=== PATIENT | male | born 1945 ===

== ENCOUNTER 2022-12-15 16:32 | Inpatient (IN) ==
--- NOTE | 2022-12-15 17:44 | Cat Scan Report ---
History: Fell with multiple injuries TECHNIQUE: The brain was imaged without contrast in axial plane at 2.5 mm intervals. Sagittal and coronal reformats were created. The radiation exposure was limited using dose reduction technology. FINDINGS: There is an old infarct with encephalomalacia posteriorly and medially in the right occipital lobe. It measures 2 x 2.4 x 4 centimeter. No acute infarct is detected. There is no hemorrhage or cerebral edema. Mild atrophy is present, most apparent in the frontal lobes and around the sylvian fissures. The ventricles are normal in size. No abnormal extra-axial fluid collection is present. Bone windows show no skull fracture. Patient has small amount of fluid and mucosal thickening in the inferior recesses of both frontal sinuses and there is also moderate mucosal thickening along the reese of several ethmoid air cells. Visualized portions of the orbits are normal. IMPRESSION: No evidence of acute head injury Old right occipital lobe infarct Sinusitis Kirsten Monroe was called with the report Interpreted and Authenticated by: Huber Irvin 12/15/22
--- NOTE | 2022-12-15 17:49 | Cat Scan Report ---
History: Fell with multiple injuries TECHNIQUE: The neck was imaged without contrast in axial plane at 2.5 mm intervals. Sagittal and coronal reformats were created. The radiation exposure was limited using dose reduction technology. FINDINGS: No fracture or dislocation are present. The skull base is normal. Cervico-occipital junction is normal. There is minor arthritis at the articulation of the odontoid and anterior ring of C1. There is partial ankylosis of the intervertebral disc at C2-3. This disc space is normal in height and there is no stenosis. The C3-4 disc is normal. There are small anterior spurs. Severe arthritis is present in the right facet and there is spurring of the right side uncinate process causing severe stenosis of the right-sided foramen. There is mild arthritis in the left facet with mild stenosis of the left-sided foramen. There are large anterior bridging spurs at C4-5, C5-6 and C6-7. These disc spaces are normal in height. There is moderate arthritis in the right side facet at C4-5 resulting in moderate stenosis of the right-sided neural foramen. Mild arthritis is present in the facets bilaterally at C5-6. There is no significant stenosis. C6-7 disc space is normal in height and there are small spurs arising from the uncinate processes. These are not causing significant stenosis. C7-T1 disc space level is normal. Central canal is normal in size and contour. No paraspinal hematoma or mass are present. 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
[2022-12-15 19:09] LABS: POC Calcium, Ionized 1.15 (1.16-1.32); POC Creatinine 1.1 (0.6-1.2)
--- NOTE | 2022-12-15 19:21 | Cat Scan Report ---
History: Fell with multiple injuries TECHNIQUE: The pelvis was imaged without contrast in axial plane at 2.5 mm intervals. Sagittal and coronal reformats were created. The radiation exposure was limited using dose reduction technology. FINDINGS: There is an acute comminuted fracture involving the left ischium. Fracture involves both anterior and posterior columns as well as the mid body. Fracture extends into the left superior ischial ramus. There is a nondisplaced fractures through the left inferior pubic ramus. The fracture in the roof of the joint extends superiorly towards the inferior margin of the left SI joint. The SI joints are normal in width and alignment. The right side of the pelvis is intact. The femoral heads and necks are normal. There is no underlying arthritis in the hips. There is a moderate size hematoma in the left side of the pelvis and leg involving the obturator internus muscle. Incidentally noted is a transitional vertebra with partial lumbarization of S1. There is arthritis and disc degeneration with posterior bulge at L5-S1. Numerous diverticula are present in the descending and sigmoid colon. There is no acute diverticulitis. IMPRESSION: Nondisplaced comminuted fracture of the left acetabulum extending into the medial aspect of the left ilium, left superior ischial ramus and left inferior pubic ramus Hematoma in the left obturator internus muscle. Kirsten Monroe was called with the report Interpreted and Authenticated by: Huber Irvin 12/15/22
[2022-12-15] MEDS ORDERED: HYDROCODONE/APAP 7.5/325MG TABLET PO ONE (19:27)
[2022-12-15] MEDS ORDERED: morphine 2 MG/ML VIAL IV PRN (19:27)
--- NOTE | 2022-12-15 19:27 | Emergency Department Note ---
Extremity Problem HPI General Chief complaint: Trauma Stated complaint: fell Time Seen by Provider: 12/15/22 16:38 Source: patient Mode of arrival: wheelchair Limitations: no limitations History of Present Illness HPI Narrative: 77-year-old healthy male presents to the ER after he sustained a ground-level fall from about 2 feet off the back of his trailer. He landed on his left hip and then hit his head. He had no loss of consciousness. He is not on blood thinners. He tried to ambulate afterwards and had fairly severe left hip pain so came to the ER for evaluation. He is complaining of some lower cervical spine pain, but he thinks this is probably from an old injury. He denies headache. He initially had some nausea, but this is resolved. He denies vomiting. Related Data Home Medications Medication Instructions Recorded Confirmed citalopram 20 mg tablet 20 mg PO HS 10/25/22 12/15/22 ezetimibe 10 mg tablet 10 mg PO HS 10/25/22 12/15/22 montelukast 10 mg tablet 10 mg PO QDAY 10/25/22 12/15/22 omeprazole 20 mg capsule,delayed 20 mg PO QDAY 10/25/22 12/15/22 release Allergies Allergy/AdvReac Type Severity Reaction Status Date / Time iodine [IODINE] Allergy Severe HIVES, Verified 12/15/22 21:02 THROAT SWELLS SHUT From SHELLFISH* Allergy Severe HIVES, Uncoded 03/03/15 12:05 THROAT SWELLS SHUT Review of Systems ROS ROS Narrative: Narrative: All systems ED: reviewed and negative except as stated. [facility] Narrative Patient History Narrative: Narrative: Medical/Surgical/Family History All Active Problems (Updated 12/15/22 @ 22:22 by Kirsten Monroe PA-C) Hyperlipidemia, mixed (Chronic) Depression (Chronic) GERD (gastroesophageal reflux disease) (Chronic) Allergic rhinitis (Chronic) RAD (reactive airway disease) (Chronic) Overweight (Chronic) Wellness examination (Chronic) Elevated PSA (Chronic) Closed pelvic fracture (Acute) Medical History Allergic rhinitis Depression Elevated PSA GERD (gastroesophageal reflux disease) Hyperlipidemia, mixed Overweight RAD (reactive airway disease) Wellness examination Surgical History History of cataract surgery (~2021) History of inguinal hernia repair History of myringoplasty (~1982) History of shoulder surgery History of sinus surgery Family History Father Colon cancer, Onset Age: 84 Brother Prostate cancer Cancer Family/Other Hyperthyroidism Depression Colon cancer Prostate cancer Social History Smoking Status: Former smoker and Smokeless tobacco Alcohol Intake Frequency: does not drink Substance Use: does not use Exam Narrative Narrative: General: AOx3, NAD, nontoxic appearing. Pleasant and conversant. HEENT: PERRL, EOMI, normocephalic. Moist mucous membranes. Normal facies and normal dentition. Chest: Symmetric, no pain to palpation Respiratory: Lungs clear to auscultation bilaterally. No respiratory distress. Unlabored breathing. Heart: Regular rate and rhythm, no murmurs/clicks/rubs. Abdomen: Non-tender, Non distended, normal bowel tones. No organomegaly. Extremities: Warm and well perfused. No edema. DP 2+ bilaterally. No venous stasis. Left hip without deformity. There is no ecchymosis or swelling to the greater trochanter. Patient has painful hip flexion. Neuro: No focal deficits. Cranial nerves II-XII grossly normal. Skin: Warm dry, no rashes or lesions, no cyanosis. Psych: Normal mood and affect Heme/Lymph: No abnormal bruising General Limitations: no limitations Course Course Course Narrative: 77-year-old male presents after a ground-level fall now with left hip pain and minor head trauma. Reevaluation(s) Reevaluation #1: Obtain head CT and cervical neck CT without contrast. Obtain pelvic CT Reevaluation #2: Pelvis CT shows a nondisplaced comminuted fracture of the left acetabulum extending into the medial aspect of the left ilium, left superior ischial ramus and left inferior pubic ramus Call placed to Skye Silva trauma surgeon and he recommends conservative management with nonweightbearing for 6 weeks. Gradual partial weightbearing thereafter. Recommends repeat imaging in about 2 weeks. Patient will need admission for PT OT evaluation, pain management, and placement Vital Signs Vital signs: Vital Signs Temperature 98.2 F 12/15/22 16:40 Pulse Rate 82 12/15/22 16:40 Respiratory Rate 19 12/15/22 16:40 Blood Pressure 130/82 12/15/22 16:40 Pulse Oximetry (%) 95 12/15/22 16:40 Oxygen Delivery Method Room Air 12/15/22 16:40 Temperature 98.1 F 12/16/22 04:00 Pulse Rate 68 12/16/22 04:00 Respiratory Rate 16 12/16/22 04:00 Blood Pressure 118/71 12/16/22 04:00 Pulse Oximetry (%) 94 12/16/22 04:00 Oxygen Delivery Method Room Air 12/16/22 04:00 MDM MDM Narrative Medical decision making narrative: Left nondisplaced acetabular fracture Patient will need admission for pain management and PT/OT evaluation and disposition planning. Patient has been accepted by the hospitalist for admission. Lab Data 12/15/22 20:51 Labs: Lab Results 12/15/22 Range/Units 19:04 POC Hct 46.0 (41-55) POC Sodium 138 (133-145) POC Potassium 4.0 (3.3-5.1) POC Chloride 103 (96-108) POC Total CO2 27.0 (22-30) POC BUN 12 (6-20) POC Creatinine 1.1 (0.6-1.2) POC Glucose 99 (70-105) POC WB Ioniz Calcium 1.15 L (1.16-1.32) Discharge Plan Patient/Caregiver Discharge Instructions Pt seen by SPORTS MARKETING SPECIALIST/PA only: Yes Clinical Impression: Closed pelvic fracture Patient Disposition: Xfer As Inpt ([facility]) Discharge Date/Time: 12/15/22 20:51
--- NOTE | 2022-12-15 20:14 | Internal Med History&Physical ---
HPI History of Present Illness Patient information: Note initiated : 12/15/22 at 8:08 pm Service Date, if different from initiated Date: [] Patient: Mitch Thorpe a 77 y/o M admitted on for fell. Chief Complaint: [] History of present illness: Mr. Thorpe is a 77 year old M Patient was working on his trailer when he stepped off falling onto his left side and hitting his head. No loss of consciousness. Patient unable to ambulate afterwards. Seen in the ED.Patient found to have left pelvic fracture nondisplaced comminuted left acetabulum extending to the medial aspect of the left ilium left superior ischial ramus and left inferior pubic ramus with a subsequent hematoma in the left obturator clinical dermatologist muscle. Case discussed with trauma surgeon in [place] who felt this was conservative treatment only and recommended nonweightbearing for 6 weeks and subsequent partial ground gradual thereafter. Patient denies chest pain or shortness of breath or headaches. CT head and CT cervical spine no acute process Review of Systems: Pertinent positives as above.denies headache/fever/chills/nausea/vomiting/chest or abdominal pain/cough/dyspnea/diarrhea. Remaining 10 point review of system reviewed negative PHYSICAL EXAM General: Alert, Awake, No acute Distress Eyes/N/T: EOMI, no scleral icterus, PERRL, Head/Neck: neck supple, full ROM, normocephalic atraumatic CV: RRR, No murmurs, normal s1/s2 Pulm: Clear b/l, no wheezing/rhonchi/rales, no respiratory distress Abd: soft, nontender, +BS x4 Ext: no clubbing/cyanosis/edema, nontender Neuro: Alert, no focal deficits, moves all extremities, CN 2-12 grossly intact, sensations intact b/l upper/lower Psychiatric: Skin: warm/dry, normal color PFSH PFSH All Active Problems Hyperlipidemia, mixed (Chronic) Depression (Chronic) GERD (gastroesophageal reflux disease) (Chronic) Allergic rhinitis (Chronic) RAD (reactive airway disease) (Chronic) Overweight (Chronic) Wellness examination (Chronic) Elevated PSA (Chronic) Medical History Allergic rhinitis Depression Elevated PSA GERD (gastroesophageal reflux disease) Hyperlipidemia, mixed Overweight RAD (reactive airway disease) Wellness examination Surgical History History of cataract surgery (~2021) History of inguinal hernia repair History of myringoplasty (~1982) History of shoulder surgery History of sinus surgery Family History Father Colon cancer, Onset Age: 84 Brother Prostate cancer Cancer Family/Other Hyperthyroidism Depression Colon cancer Prostate cancer Social History marital status: occupational status: retired physical activity: walking frequency: 1-2 times per week smoking status: Former smoker quit date: 09/30/13 and Smokeless tobacco alcohol intake frequency: does not drink substance use type: does not use MEDS/ALLERGIES Home Medications and Allergies Home Medications Medication Instructions Recorded Confirmed Type citalopram 20 mg tablet 20 mg PO HS 10/25/22 12/15/22 History ezetimibe 10 mg tablet 10 mg PO HS 10/25/22 12/15/22 History montelukast 10 mg tablet 10 mg PO QDAY 10/25/22 12/15/22 History omeprazole 20 mg capsule,delayed 20 mg PO QDAY 10/25/22 12/15/22 History release Allergies Allergy/AdvReac Type Severity Reaction Status Date / Time iodine [IODINE] Allergy Severe HIVES, Verified 12/15/22 20:06 THROAT SWELLS SHUT From SHELLFISH* Allergy Severe HIVES, Uncoded 03/03/15 12:05 THROAT SWELLS SHUT EXAM Constitutional Vitals: Temp Pulse Resp BP Pulse Ox O2 Del Method 98.2 F 77 19 125/73 95 Room Air 12/15/22 16:40 12/15/22 20:04 12/15/22 16:40 12/15/22 20:04 12/15/22 20:04 12/15/22 16:40 DATA Data Completed and Pending Labs: Labs from last 24 hours 12/15/22 19:04 POC Hct 46.0 POC Sodium 138 POC Potassium 4.0 POC Chloride 103 POC Total CO2 27.0 POC BUN 12 POC Creatinine 1.1 POC Glucose 99 POC WB Ioniz Calcium 1.15 L A/P Narrative A/P Narrative: A: *Left side pelvic fracture, nondisplaced. With hematoma: Per trauma surgery > conservative treatment -Nonweightbearing for 6 weeks then partial and gradual thereafter * *HLD: *Depression: *GERD: * P: -pain control, muscle relaxers -per orthopedics > conservative treatment, NWB x6wks then partial and gradual thereafter -per ortho > repeat imaging in 2wks. -Check CBC given hematoma - -cont home medications -PT/OT -follow-up with orthopedic surgery -CM for placement -ppx: SCD(given trauma/hematoma) / home ppi Time Spent With Patient Time: Total time spent is greater than 50% in coordination of care (as documented) at patient's floor/unit and/or counseling patient: Initial: Total time with patient: 55 - 74 minutes
[2022-12-15 20:57] LABS: Basophils # (Auto) 0.04 K/mcL (0.00-0.30); Basophils % (Auto) 0.3 % (0.0-2.0); Eosinophils % (Auto) 0.7 % (0.0-7.0); Hematocrit 45.7 % (40.1-51.0); Lymphocytes # (Auto) 1.36 K/mcL (1.50-4.80); Lymphocytes % (Auto) 9.8 % (15.5-49.0); Mean Cell Volume 91.8 fL (80.0-100.0); Mean Corpuscular HGB Conc 32.8 g/dL (31.0-36.0); Mean Platelet Volume 10.4 fL (8.8-12.5); Monocytes # (Auto) 0.99 K/mcL (0.10-0.90); Monocytes % (Auto) 7.2 % (1.0-12.0); Neutrophils % (Auto) 81.5 % (38.0-78.0); Platelet Count 194 K/mcL (140-440); RBC 4.98 M/mcL (4.63-6.08); Red Cell Distribution Width 13.1 % (11.5-14.5); WBC 13.8 K/mcL (4.5-11.0)
[2022-12-15] MEDS ORDERED: SENNOSIDES 1 TABLET PO PRN (21:00)
[2022-12-15] MEDS ORDERED: POTASSIUM CHLORIDE 40 MEQ in DEXTROSE 5% IN WATER 500 ML IV PRN (21:00)
[2022-12-15] MEDS ORDERED: ONDANSETRON 4 MG/2 ML VIAL IV PRN (21:00)
[2022-12-15] MEDS ORDERED: MAGNESIUM SULFATE 2 GM/50 ML BAG IV PRN (21:00)
[2022-12-15] MEDS ORDERED: 0.9 % SODIUM CHLORIDE 1,000 ML IV SCH (21:00)
[2022-12-15] MEDS ORDERED: ACETAMINOPHEN 325 MG TABLET PO PRN (21:00)
[2022-12-15] MEDS ORDERED: IPRATROPIUM/ALBUTEROL 3 ML AMPUL.NEB NEB PRN (21:00)
[2022-12-15] MEDS ORDERED: POTASSIUM CHLORIDE 20 MEQ TABLET PO PRN ×2 (21:00)
[2022-12-15] MEDS ORDERED: morphine 4 MG/ML VIAL IV PRN (21:00)
[2022-12-15] MEDS ORDERED: POLYETHYLENE GLYCOL 3350 17 GM PACKET PO PRN (21:00)
[2022-12-15] MEDS: DOCUSATE SODIUM 100 MG CAPSULE PO SCH ×2 (21:25→21:36)
[2022-12-15] MEDS: 0.9 % SODIUM CHLORIDE 10 ML SYRINGE IV SCH (21:36)
[2022-12-15] MEDS: EZETIMIBE 10 MG TABLET PO SCH (21:36)
[2022-12-15] MEDS: HYDROcodone/APAP 5/325MG TABLET PO PRN (21:36)
[2022-12-15] MEDS: CITALOPRAM 20 MG TABLET PO SCH (21:36)
[2022-12-16] MEDS: 0.9 % SODIUM CHLORIDE 10 ML SYRINGE IV SCH ×3 (04:32→20:35)
[2022-12-16 06:46] LABS: Basophils # (Auto) 0.03 K/mcL (0.00-0.30); Basophils % (Auto) 0.3 % (0.0-2.0); Eosinophils # (Auto) 0.26 K/mcL (0.00-0.70); Hematocrit 40.8 % (40.1-51.0); Hemoglobin 13.4 g/dL (13.7-17.5); Lymphocytes # (Auto) 1.41 K/mcL (1.50-4.80); Lymphocytes % (Auto) 16.2 % (15.5-49.0); Mean Cell Volume 92.9 fL (80.0-100.0); Mean Corpuscular HGB Conc 32.8 g/dL (31.0-36.0); Mean Platelet Volume 10.2 fL (8.8-12.5); Monocytes # (Auto) 0.96 K/mcL (0.10-0.90); Neutrophils % (Auto) 69.2 % (38.0-78.0); Platelet Count 172 K/mcL (140-440); RBC 4.39 M/mcL (4.63-6.08); Red Cell Distribution Width 13.1 % (11.5-14.5); WBC 8.7 K/mcL (4.5-11.0)
[2022-12-16 07:31] LABS: ALT/SGPT 14 U/L (<40); AST/SGOT 21 U/L (<40); Albumin 3.7 gm/dL (3.2-5.2); Albumin/Globulin Ratio 1.7 (1.0-2.3); Alkaline Phosphatase 75 U/L (39-117); Bilirubin,Direct 0.3 mg/dL (<0.3); Bilirubin,Total 1.5 mg/dL (0.1-1.0); Blood Urea Nitrogen 11 mg/dL (8-23); Calcium 8.5 mg/dL (8.6-10.4); Carbon Dioxide 26 mmol/L (22-30); Chloride 104 mmol/L (96-108); Globulin 2.2 gm/dL (2.2-3.7); Glomerular Filtration Rate 82; Glucose 104 mg/dL (70-105); Lactate Dehydrogenase 232 U/L (135-225); Phosphorous 2.6 mg/dL (2.5-4.5); Triglycerides 74 mg/dL (<150); Uric Acid 5.5 mg/dL (2.5-8.0)
[2022-12-16] MEDS: OMEPRAZOLE 20 MG CAPSULE PO SCH (08:44)
[2022-12-16] MEDS: DOCUSATE SODIUM 100 MG CAPSULE PO SCH ×2 (08:44→20:35)
[2022-12-16] MEDS: MONTELUKAST 10 MG TABLET PO SCH (08:44)
[2022-12-16] MEDS: METHOCARBAMOL 750 MG TABLET PO PRN (08:44)
--- NOTE | 2022-12-16 08:48 | Internal Med Progress Note ---
SUBJECTIVE Subjective Patient information: Note initiated : 12/16/22 at 8:46 am Service Date, if different from initiated Date: [] Patient: Mitch Thorpe a 77 y/o M admitted on 12/15/22 for fell. Chief Complaint: [] Interval history: History of present illness: Mr. Thorpe is a 77 year old M Patient was working on his trailer when he stepped off falling onto his left side and hitting his head. No loss of consciousness. Patient unable to ambu late afterwards. Seen in the ED.Patient found to have left pelvic fracture nondisplaced comminute d left acetabulum extending to the medial aspect of the left ilium left superior ischial ramus and left inferior pubic ramus with a subsequent hematoma in the left obturator fondant puff maker muscle. Case discussed with trauma surgeon in [place] who felt this was conservative treatment only and recommended nonweightbearing for 6 weeks and subsequent partial ground gradual thereafter. Patient denies chest pain or shortness of breath or headaches. CT head and CT cervical spine no acute process 12/16 Patient did not sleep very well. States pain is controlled as long as he does not move. Reactive leukocytosis resolved. Vital signs stable. Physical therapy today. Case management for placement. Review of Systems: Pertinent positives as above.denies headache/fever/chills/nausea/vomiting/chest or abdominal pain/cough/dyspnea/diarrhea. PHYSICAL EXAM General: Alert, Awake, No acute Distress Eyes/N/T: EOMI, no scleral icterus, Head/Neck: neck supple, full ROM, CV: RRR, No murmurs, normal s1/s2 Pulm: Clear b/l, no wheezing/rhonchi/rales, no respiratory distress Abd: soft, nontender, +BS x4 Ext: no clubbing/cyanosis/edema, nontender Neuro: Alert, no focal deficits, moves all extremities, sensations intact b/l upper/lower Psychiatric: Skin: warm/dry, normal color Constitutional Vitals: Vital Signs Temp Pulse Resp BP Pulse Ox O2 Del Method 98.1 F 68 16 118/71 94 Room Air 12/16/22 04:00 12/16/22 04:00 12/16/22 04:00 12/16/22 04:00 12/16/22 04:00 12/16/22 04:00 Period Temp Pulse Resp BP Sys/[place] Pulse Ox O2 Del Method O2 Flow Rate Last 24 Hr 97.3 F-98.2 F 65-82 16-20 118-147/71-89 92-99 Room Air-Room Air Intake and Output 12/15/22 12/16/22 12/16/22 19:59 03:59 11:59 Intake Total 1240 Output Total 425 200 Balance -425 1040 Weight 86.183 kg 88.904 kg Intake & Output: Intake & Output 12/15/22 12/16/22 12/16/22 19:59 03:59 11:59 Intake Total 1240 Output Total 425 200 Balance -425 1040 Weight 86.183 kg 88.904 kg Intake: IV 1000 Sodium Chloride 0.9% 1,000 ml @ 1000 100 mls/hr IV .Q10H [facility] Rx#: [id number] Oral 240 Output: Void Amount 425 200 Other: Meal JELLO X2 Percent of Meal Consumed 100% Feeding Ability Independent Urine Appearance Clear Clear Urine Color Yellow Yellow Urine Odor Normal Normal OBJ DATA Labs 12/16/22 05:10 12/16/22 05:10 Labs: Abnormal Lab Results 12/16/22 12/16/22 12/15/22 05:10 05:10 20:51 WBC 13.8 H RBC 4.39 L Hgb 13.4 L Neut % (Auto) 81.5 H Lymph % (Auto) 9.8 L Lymph # (Auto) 1.41 L 1.36 L [place] # (Auto) 0.96 H 0.99 H Immature Gran # 0.07 H Absolute Neutrophils 11.28 H Calcium 8.5 L POC WB Ioniz Calcium Total Bilirubin 1.5 H Direct Bilirubin 0.3 H Lactate Dehydrogenase 232 H 12/15/22 19:04 WBC RBC Hgb Neut % (Auto) Lymph % (Auto) Lymph # (Auto) [place] # (Auto) Immature Gran # Absolute Neutrophils Calcium POC WB Ioniz Calcium 1.15 L Total Bilirubin Direct Bilirubin Lactate Dehydrogenase Meds: Medications Acetaminophen (Acetaminophen 325 Mg Tablet) 650 mg PO Q6HP PRN; Protocol PRN Reason: Per Pain Protocol/Fever > 101 Hydrocodone Bitart/Acetaminophen (Hydrocodone/Apap 5/325mg Tablet) 1 tab PO Q4HP PRN PRN Reason: PAIN LEVEL 3-6 Last Admin: 03/18/23 21:36 Dose: 1 tab Albuterol/Ipratropium (Ipratropium/Albuterol 3 Ml Ampul.Neb) 3 ml NEB Q4HP PRN PRN Reason: Shortness Of Breath Citalopram Hydrobromide (Citalopram 20 Mg Tablet) 20 mg PO [facility] Last Admin: 12/15/22 21:36 Dose: 20 mg Docusate Sodium (Docusate Sodium 100 Mg Capsule) 100 mg PO BID [facility] Last Admin: 12/16/22 08:44 Dose: 100 mg Ezetimibe (Ezetimibe 10 Mg Tablet) 10 mg PO [facility] Last Admin: 12/15/22 21:36 Dose: 10 mg Potassium Chloride 40 meq/ (Dextrose) 520 mls @ 130 mls/hr IV UD PRN PRN Reason: Potassium < 3 Magnesium Sulfate (Magnesium Sulfate) 2 gm in 50 mls @ 50 mls/hr IV UD PRN PRN Reason: Magnesium </= 1.6 Methocarbamol (Methocarbamol 750 Mg Tablet) 750 mg PO TIDP PRN PRN Reason: Muscle Spasm Last Admin: 12/16/22 08:44 Dose: 750 mg Montelukast Sodium (Montelukast 10 Mg Tablet) 10 mg PO QDAY [facility] Last Admin: 12/16/22 08:44 Dose: 10 mg Morphine Sulfate (Morphine 4 Mg/Ml Vial) 0 mg IV Q3HP PRN PRN Reason: Pain Omeprazole (Omeprazole 20 Mg Capsule) 20 mg PO QDAY [facility] Last Admin: 12/16/22 08:44 Dose: 20 mg Ondansetron HCl (Ondansetron 4 Mg/2 Ml Vial) 4 mg IV Q4HP PRN PRN Reason: Nausea And Vomiting Polyethylene Glycol (Polyethylene Glycol 3350 17 Gm Packet) 17 gm PO DAILYP PRN PRN Reason: Constipation Potassium Chloride (Potassium Chloride 20 Meq Tablet) 40 meq PO UD PRN PRN Reason: Potssium is 3-3.5 Potassium Chloride (Potassium Chloride 20 Meq Tablet) 40 meq PO UD PRN PRN Reason: Potassium < 3 Senna (Sennosides 1 Tablet) 2 tab PO DAILYP PRN PRN Reason: Constipation Sodium Chloride (0.9 % Sodium Chloride 10 Ml Syringe) 10 ml IV Q8 [facility] Last Admin: 12/16/22 04:32 Dose: Not Given A/P Narrative A/P Narrative: A: *Left side pelvic fracture, nondisplaced. With hematoma: Per trauma surgery > conservative treatment -Nonweightbearing for 6 weeks then partial and gradual thereafter *HLD: *Depression: *GERD: P: -pain control, muscle relaxers -per orthopedics > conservative treatment, NWB x6wks then partial and gradual thereafter -per ortho > repeat imaging in 2wks. -cont home medications -PT/OT -follow-up with orthopedic surgery -CM for placement -ppx: SCD(given trauma/hematoma) / home ppi Time Spent With Patient Time: Total time spent is greater than 50% in coordination of care (as documented) at patient's floor/unit and/or counseling patient: Subsequent: Total time with patient: 35 - 49 minutes QUALITY VTE Deep Vein Thrombosis/Pulmonary Embolism Present on Admission: No
[2022-12-16] MEDS: HYDROcodone/APAP 5/325MG TABLET PO PRN ×2 (08:59→20:35)
--- NOTE | 2022-12-16 10:59 | Discharge Summary ---
Discharge Provider Provider IMPORTANT FOLLOW-UP INFORMATION FOR PCP: Patient information: Note initiated : 12/16/22 at 10:58 am Service Date, if different from initiated Date: [] Patient: Mitch Thorpe 77 y/o M admitted on 12/15/22 for fell. Chief Complaint: [] Date of admission: 12/15/22 20:51 Discharge date: 12/18/22 Primary care physician: Maria Teresa Renner Consults: 12/15/22 Consult to Physician [CONS] Stat Comment: Consulting Provider: Josh Morris Reason For Exam: Physician to Consult COURSE Hospital Course Hospital course: History of present illness: Mr. Thorpe is a 77 year old M Patient was working on his trailer when he stepped off falling onto his left side and hitting his head. No loss of consciousness. Patient unable to ambulate afterwards. 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 Case discussed with trauma surgeon in [place] who felt this was conservative treatment only and recommended nonweightbearing for 6 weeks and subsequent partial ground gradual thereafter. Patient denies chest pain or shortness of breath or headaches. CT head and CT cervical spine no acute process 12/16 Patient did not sleep very well. States pain is controlled as long as he does not move. Reactive leukocytosis resolved. Vital signs stable. Physical therapy today. Case management for placement. 12/17 Pain relatively controlled while still but when he moves or sits up pain is still severe. Vital signs stable. 12/18 Patient feeling better. Able ambulate to the bathroom without such severe pain. Awaiting PT OT. Eventual placement. A: *Left side pelvic fracture, nondisplaced. With hematoma: Per trauma surgery > conservative treatment -Nonweightbearing for 6 weeks then partial and gradual thereafter *HLD: *Depression: *GERD: P: -pain control, muscle relaxers -per orthopedics > conservative treatment, NWB x6wks then partial and gradual thereafter -per ortho > repeat imaging in 2wks. Discharge diagnosis: left side pelvic fracture Secondary discharge diagnosis: Hyperlipidemia depression GERD Time Spent with Patient Time attestation: Total time spent providing and/or coordinating discharge services: Time spent: Greater than 30 minutes EXAM Constitutional Vitals: Temp Pulse Resp BP Pulse Ox O2 Del Method 97.9 F 76 14 119/65 94 Room Air 12/16/22 08:00 12/16/22 08:00 12/16/22 08:00 12/16/22 08:00 12/16/22 08:00 12/16/22 08:00 Discharge Data Data Completed and Pending Labs on day of discharge: Labs from last 24 hours 12/16/22 12/16/22 12/15/22 05:10 05:10 20:51 WBC 8.7 13.8 H RBC 4.39 L 4.98 Hgb 13.4 L 15.0 Hct 40.8 45.7 POC Hct MCV 92.9 91.8 MCH 30.5 30.1 MCHC 32.8 32.8 RDW 13.1 13.1 Plt Count 172 194 MPV 10.2 10.4 Immature Gran % (Auto) 0.3 0.5 Neut % (Auto) 69.2 81.5 H Lymph % (Auto) 16.2 9.8 L [place] % (Auto) 11.0 7.2 Eos % (Auto) 3.0 0.7 Baso % (Auto) 0.3 0.3 Lymph # (Auto) 1.41 L 1.36 L [place] # (Auto) 0.96 H 0.99 H Eos # (Auto) 0.26 0.10 Baso # (Auto) 0.03 0.04 Immature Gran # 0.03 0.07 H Absolute Neutrophils 6.03 11.28 H POC Sodium Sodium 140 POC Potassium Potassium 4.2 POC Chloride Chloride 104 Carbon Dioxide 26 POC Total CO2 Anion Gap 10.0 POC BUN BUN 11 Creatinine 0.9 POC Creatinine GFR Calculation 82 Glucose 104 POC Glucose Uric Acid 5.5 Calcium 8.5 L POC WB Ioniz Calcium Phosphorus 2.6 Magnesium 2.0 Total Bilirubin 1.5 H Direct Bilirubin 0.3 H GGT 11 AST 21 ALT 14 Alkaline Phosphatase 75 Lactate Dehydrogenase 232 H Total Protein 5.9 Albumin 3.7 Globulin 2.2 Albumin/Globulin Ratio 1.7 Triglycerides 74 12/15/22 19:04 WBC RBC Hgb Hct POC Hct 46.0 MCV MCH MCHC RDW Plt Count MPV Immature Gran % (Auto) Neut % (Auto) Lymph % (Auto) [place] % (Auto) Eos % (Auto) Baso % (Auto) Lymph # (Auto) [place] # (Auto) Eos # (Auto) Baso # (Auto) Immature Gran # Absolute Neutrophils POC Sodium 138 Sodium POC Potassium 4.0 Potassium POC Chloride 103 Chloride Carbon Dioxide POC Total CO2 27.0 Anion Gap POC BUN 12 BUN Creatinine POC Creatinine 1.1 GFR Calculation Glucose POC Glucose 99 Uric Acid Calcium POC WB Ioniz Calcium 1.15 L Phosphorus Magnesium Total Bilirubin Direct Bilirubin GGT AST ALT Alkaline Phosphatase Lactate Dehydrogenase Total Protein Albumin Globulin Albumin/Globulin Ratio Triglycerides Discharge Plan Patient/Caregiver Discharge Instructions Activity: increase activity as tolerated Diet: Regular Diet Instructions: Pelvic Fracture (DC) Activity Restrictions/Additional Instructions: Referral to see orthopedic surgery in 3 to 10 days. Recommendations for repeat imaging in 2 weeks per Ortho from presentation in the ED. Please call [facility] for a follow up appointment. Per Ortho nonweightbearing for 6 weeks then partial and gradual thereafter. Increase activity as to lerated. Regular diet as tolerated. Call your physician for sustained fever, increase in pain, or any questions/concerns. This discharge packet is provided to you to help keep you informed about your care. We want to ensure you get everything you need when you go home. You will also be receiving a call from us in a few days to follow up with you and see how you are doing since your discharge. This gives us a chance to listen to any concerns you maybe experiencing since you were discharged or any additional needs you may have, as well as providing us feedback on your care experience. We strive to always provide excellent care and thank you for your feedback and for choosing [facility]. Prescriptions: New hydrocodone-acetaminophen 5-325 mg Tablet 1 tab PO Q6HP PRN (Reason: Pain Level 3-6) Qty: 30 0RF methocarbamol 750 mg Tablet 750 mg PO TIDP PRN (Reason: Muscle Spasm) Qty: 20 0RF Continued ezetimibe 10 mg tablet 10 mg PO HS omeprazole 20 mg capsule,delayed release(DR/EC) 20 mg PO QDAY citalopram 20 mg tablet 20 mg PO HS montelukast 10 mg tablet 10 mg PO QDAY Other Ambulatory Orders: OT Discharge Order (Routine) Location: None Selected Ordered By: Josh Morris Physical Therapy at Discharge - General (Routine) Location: None Selected Ordered By: Josh Morris Follow Up Plan Follow up with: Maria Teresa Renner MD [Primary Care Provider] - (Please call and schedule a hospital follow up appointment) Patient Disposition: Xfer SNF Prognosis: Fair Rehab Potential: Fair I certify that the patient requires SNF services: Yes Overall status at discharge: patient is progressing back to baseline Discharge Orders: Discharge Order (Routine); Ordered 12/18/22 Ordered By: Josh Morris [facility] VTE Deep Vein Thrombosis/Pulmonary Embolism Present on Admission: No
[2022-12-16] MEDS: EZETIMIBE 10 MG TABLET PO SCH (20:35)
[2022-12-16] MEDS: CITALOPRAM 20 MG TABLET PO SCH (20:35)
[2022-12-17] MEDS: 0.9 % SODIUM CHLORIDE 10 ML SYRINGE IV SCH ×3 (04:06→20:26)
--- NOTE | 2022-12-17 07:56 | Internal Med Progress Note ---
SUBJECTIVE Subjective Patient information: Note initiated : 12/17/22 at 7:55 am Service Date, if different from initiated Date: [] Patient: Mitch Thorpe a 77 y/o M admitted on 12/15/22 for fell. Chief Complaint: [] Interval history: History of present illness: Mr. Thorpe is a 77 year old M Patient was working on his trailer when he stepped off falling onto his left side and hitting his head. No loss of consciousness. Patient unable to ambu late afterwards. 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 Case discussed with trauma surgeon in [place] who felt this was conservative treatment only and recommended nonweightbearing for 6 weeks and subsequent partial ground gradual thereafter. Patient denies chest pain or shortness of breath or headaches. CT head and CT cervical spine no acute process 12/16 Patient did not sleep very well. States pain is controlled as long as he does not move. Reactive leukocytosis resolved. Vital signs stable. Physical therapy today. Case management for placement. 12/17 Pain relatively controlled while still but when he moves or sits up pain is still severe. Vital signs stable. Review of Systems: Pertinent positives as above.denies headache/fever/chills/nausea/vomiting/chest or abdominal pain/cough/dyspnea/diarrhea. PHYSICAL EXAM General: Alert, Awake, No acute Distress Eyes/N/T: EOMI, no scleral icterus, Head/Neck: neck supple, full ROM, CV: RRR, No murmurs, normal s1/s2 Pulm: Clear b/l, no wheezing/rhonchi/rales, no respiratory distress Abd: soft, nontender, +BS x4 Ext: no clubbing/cyanosis/edema, nontender Neuro: Alert, no focal deficits, moves all extremities, sensations intact b/l upper/lower Psychiatric: Skin: warm/dry, normal color Constitutional Vitals: Vital Signs Temp Pulse Resp BP Pulse Ox O2 Del Method 97.7 F 64 16 127/81 96 Room Air 12/17/22 07:27 12/17/22 07:27 12/17/22 07:27 12/17/22 07:27 12/17/22 07:27 12/17/22 07:27 Period Temp Pulse Resp BP Sys/Santana Pulse Ox O2 Del Method O2 Flow Rate Last 24 Hr 97.6 F-98.0 F 64-76 14-17 113-127/65-81 91-96 Room Air-Room Air Intake and Output 12/16/22 12/17/22 12/17/22 19:59 03:59 11:59 Intake Total 1180 800 Output Total 300 300 300 Balance 880 -300 500 Weight 88.677 kg Intake & Output: Intake & Output 12/16/22 12/17/22 12/17/22 19:59 03:59 11:59 Intake Total 1180 800 Output Total 300 300 300 Balance 880 -300 500 Weight 88.677 kg Intake: Oral 480 800 GI Tube Flush 700 Output: Void Amount 300 300 300 Other: Meal Dinner Percent of Meal Consumed 100% Feeding Ability Assist with Tray Set Up Urine Appearance Clear Clear Clear Urine Color Yellow Yellow Dark Yellow Urine Odor Normal Normal Normal OBJ DATA Labs 12/16/22 05:10 12/16/22 05:10 Labs: Abnormal Lab Results 12/16/22 12/16/22 12/15/22 05:10 05:10 20:51 WBC 13.8 H RBC 4.39 L Hgb 13.4 L Neut % (Auto) 81.5 H Lymph % (Auto) 9.8 L Lymph # (Auto) 1.41 L 1.36 L [place] # (Auto) 0.96 H 0.99 H Immature Gran # 0.07 H Absolute Neutrophils 11.28 H Calcium 8.5 L POC WB Ioniz Calcium Total Bilirubin 1.5 H Direct Bilirubin 0.3 H Lactate Dehydrogenase 232 H 12/15/22 19:04 WBC RBC Hgb Neut % (Auto) Lymph % (Auto) Lymph # (Auto) [place] # (Auto) Immature Gran # Absolute Neutrophils Calcium POC WB Ioniz Calcium 1.15 L Total Bilirubin Direct Bilirubin Lactate Dehydrogenase Meds: Medications Acetaminophen (Acetaminophen 325 Mg Tablet) 650 mg PO Q6HP PRN; Protocol PRN Reason: Per Pain Protocol/Fever > 101 Hydrocodone Bitart/Acetaminophen (Hydrocodone/Apap 5/325mg Tablet) 1 tab PO Q4H P PRN PRN Reason: PAIN LEVEL 3-6 Last Admin: 12/16/22 20:35 Dose: 1 tab Albuterol/Ipratropium (Ipratropium/Albuterol 3 Ml Ampul.Neb) 3 ml NEB Q4HP PRN PRN Reason: Shortness Of Breath Citalopram Hydrobromide (Citalopram 20 Mg Tablet) [address] [facility] Last Admin: 12/16/22 20:35 Dose: 20 mg Docusate Sodium (Docusate Sodium 100 Mg Capsule) 100 mg PO BID [facility] Last Admin: 12/16/22 20:35 Dose: 100 mg Ezetimibe (Ezetimibe 10 Mg Tablet) [address] [facility] Last Admin: 12/16/22 20:35 Dose: 10 mg Potassium Chloride 40 meq/ (Dextrose) 520 mls @ 130 mls/hr IV UD PRN PRN Reason: Potassium < 3 Magnesium Sulfate (Magnesium Sulfate) 2 gm in 50 mls @ 50 mls/hr IV UD PRN PRN Reason: Magnesium </= 1.6 Methocarbamol (Methocarbamol 750 Mg Tablet) 750 mg PO TIDP PRN PRN Reason: Muscle Spasm Last Admin: 12/16/22 08:44 Dose: 750 mg Montelukast Sodium (Montelukast 10 Mg Tablet) 10 mg PO QDAY [facility] Last Admin: 12/16/22 08:44 Dose: 10 mg Morphine Sulfate (Morphine 4 Mg/Ml Vial) 0 mg IV Q3HP PRN PRN Reason: Pain Omeprazole (Omeprazole 20 Mg Capsule) 20 mg PO QDAY [facility] Last Admin: 12/16/22 08:44 Dose: 20 mg Ondansetron HCl (Ondansetron 4 Mg/2 Ml Vial) 4 mg IV Q4HP PRN PRN Reason: Nausea And Vomiting Polyethylene Glycol (Polyethylene Glycol 3350 17 Gm Packet) 17 gm PO DAILYP PRN PRN Reason: Constipation Potassium Chloride (Potassium Chloride 20 Meq Tablet) 40 meq PO UD PRN PRN Reason: Potssium is 3-3.5 Potassium Chloride (Potassium Chloride 20 Meq Tablet) 40 meq PO UD PRN PRN Reason: Potassium < 3 Senna (Sennosides 1 Tablet) 2 tab PO DAILYP PRN PRN Reason: Constipation Sodium Chloride (0.9 % Sodium Chloride 10 Ml Syringe) 10 ml IV Q8 [facility] Last Admin: 12/17/22 04:06 Dose: 10 ml A/P Narrative A/P Narrative: A: *Left side pelvic fracture, nondisplaced. With hematoma: Per trauma surgery > conservative treatment -Nonweightbearing for 6 weeks then partial and gradual thereafter *HLD: *Depression: *GERD: P: -pain control, muscle relaxers -per orthopedics > conservative treatment, NWB x6wks then partial and gradual thereafter -per ortho > repeat imaging in 2wks. -cont home medications -PT/OT -follow-up with orthopedic surgery -CM for placement -ppx: SCD(given trauma/hematoma) / home ppi Time Spent With Patient Time: Total time spent is greater than 50% in coordination of care (as documented) at patient's floor/unit and/or counseling patient: QUALITY VTE Deep Vein Thrombosis/Pulmonary Embolism Present on Admission: No
[2022-12-17] MEDS: OMEPRAZOLE 20 MG CAPSULE PO SCH (08:25)
[2022-12-17] MEDS: DOCUSATE SODIUM 100 MG CAPSULE PO SCH ×2 (08:25→20:25)
[2022-12-17] MEDS: METHOCARBAMOL 750 MG TABLET PO PRN ×2 (08:25→15:19)
[2022-12-17] MEDS: MONTELUKAST 10 MG TABLET PO SCH (08:25)
[2022-12-17] MEDS: HYDROcodone/APAP 5/325MG TABLET PO PRN ×2 (11:52→20:25)
[2022-12-17] MEDS: EZETIMIBE 10 MG TABLET PO SCH (20:25)
[2022-12-17] MEDS: CITALOPRAM 20 MG TABLET PO SCH (20:26)
[2022-12-18] MEDS: 0.9 % SODIUM CHLORIDE 10 ML SYRINGE IV SCH ×2 (05:37→13:27)
[2022-12-18] MEDS: METHOCARBAMOL 750 MG TABLET PO PRN (06:58)
[2022-12-18] MEDS ORDERED: hydrALAZINE 20 MG/ML VIAL IV PRN (08:29)
--- NOTE | 2022-12-18 08:29 | Internal Med Progress Note ---
SUBJECTIVE Subjective Patient information: Note initiated : 12/18/22 at 8:28 am Service Date, if different from initiated Date: [] Patient: Mitch Thorpe a 77 y/o M admitted on 12/15/22 for fell. Chief Complaint: [] Interval history: History of present illness: Mr. Thorpe is a 77 year old M Patient was working on his trailer when he stepped off falling onto his left side and hitting his head. No loss of consciousness. Patient unable to ambu late afterwards. 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 Case discussed with trauma surgeon in [place] who felt this was conservative treatment only and recommended nonweightbearing for 6 weeks and subsequent partial ground gradual thereafter. Patient denies chest pain or shortness of breath or headaches. CT head and CT cervical spine no acute process 12/16 Patient did not sleep very well. States pain is controlled as long as he does not move. Reactive leukocytosis resolved. Vital signs stable. Physical therapy today. Case management for placement. 12/17 Pain relatively controlled while still but when he moves or sits up pain is still severe. Vital signs stable. 12/18 Patient feeling better. Able ambulate to the bathroom without such severe pain. Awaiting PT OT. Eventual placement. Review of Systems: Pertinent positives as above.denies headache/fever/chills/nausea/vomiting/chest or abdominal pain/cough/dyspnea/diarrhea. PHYSICAL EXAM General: Alert, Awake, No acute Distress Eyes/N/T: EOMI, no scleral icterus, Head/Neck: neck supple, full ROM, CV: RRR, No murmurs, normal s1/s2 Pulm: Clear b/l, no wheezing/rhonchi/rales, no respiratory distress Abd: soft, nontender, +BS x4 Ext: no clubbing/cyanosis/edema, nontender Neuro: Alert, no focal deficits, moves all extremities, sensations intact b/l upper/lower Psychiatric: Skin: warm/dry, normal color Constitutional Vitals: Vital Signs Temp Pulse Resp BP Pulse Ox O2 Del Method 97.3 F 69 12 157/99 96 Room Air 12/18/22 08:00 12/18/22 08:00 12/18/22 08:00 12/18/22 08:00 12/18/22 08:00 12/18/22 08:00 Period Temp Pulse Resp BP Sys/Santana Pulse Ox O2 Del Method O2 Flow Rate Last 24 Hr 97.3 F-98.7 F 64-71 12-14 108-157/70-99 93-96 Room Air-Room Air Intake and Output 12/17/22 12/18/22 12/18/22 19:59 03:59 11:59 Intake Total 880 630 480 Output Total 425 750 275 Balance 455 -120 205 Weight 85.82 kg Intake & Output: Intake & Output 12/17/22 12/18/22 12/18/22 19:59 03:59 11:59 Intake Total 880 630 480 Output Total 425 750 275 Balance 455 -120 205 Weight 85.82 kg Intake: Oral 240 630 480 GI Tube Flush 640 Output: Void Amount 425 750 275 Other: Meal Dinner Percent of Meal Consumed 100% Feeding Ability Independent Urine Appearance Clear Clear Urine Color Yellow Dark Yellow Yellow Urine Odor Normal Normal Normal Stool Size Small Stool Color Brown Stool Consistency Soft # Voids 1 # Bowel Movements 1 OBJ DATA Labs 12/16/22 05:10 12/16/22 05:10 Labs: Abnormal Lab Results 12/16/22 12/16/22 12/15/22 05:10 05:10 20:51 WBC 13.8 H RBC 4.39 L Hgb 13.4 L Neut % (Auto) 81.5 H Lymph % (Auto) 9.8 L Lymph # (Auto) 1.41 L 1.36 L [place] # (Auto) 0.96 H 0.99 H Immature Gran # 0.07 H Absolute Neutrophils 11.28 H Calcium 8.5 L POC WB Ioniz Calcium Total Bilirubin 1.5 H Direct Bilirubin 0.3 H Lactate Dehydrogenase 232 H 12/15/22 19:04 WBC RBC Hgb Neut % (Auto) Lymph % (Auto) Lymph # (Auto) [place] # (Auto) Immature Gran # Absolute Neutrophils Calcium POC WB Ioniz Calcium 1.15 L Total Bilirubin Direct Bilirubin Lactate Dehydrogenase Meds: Medications Acetaminophen (Acetaminophen 325 Mg Tablet) 650 mg PO Q6HP PRN; Protocol PRN Reason: Per Pain Protocol/Fever > 101 Hydrocodone Bitart/Acetaminophen (Hydrocodone/Apap 5/325mg Tablet) 1 tab PO Q4HP PRN PRN Reason: PAIN LEVEL 3-6 Last Admin: 12/17/22 20:25 Dose: 1 tab Albuterol/Ipratropium (Ipratropium/Albuterol 3 Ml Ampul.Neb) 3 ml NEB Q4HP PRN PRN Reason: Shortness Of Breath Citalopram Hydrobromide (Citalopram 20 Mg Tablet) 20 mg PO [facility] Last Admin: 12/17/22 20:26 Dose: 20 mg Docusate Sodium (Docusate Sodium 100 Mg Capsule) 100 mg PO BID [facility] Last Admin: 12/17/22 20:25 Dose: 100 mg Ezetimibe (Ezetimibe 10 Mg Tablet) 10 mg PO [facility] Last Admin: 12/17/22 20:25 Dose: 10 mg Potassium Chloride 40 meq/ (Dextrose) 520 mls @ 130 mls/hr IV UD PRN PRN Reason: Potassium < 3 Magnesium Sulfate (Magnesium Sulfate) 2 gm in 50 mls @ 50 mls/hr IV UD PRN PRN Reason: Magnesium </= 1.6 Methocarbamol (Methocarbamol 750 Mg Tablet) 750 mg PO TIDP PRN PRN Reason: Muscle Spasm Last Admin: 12/18/22 06:58 Dose: 750 mg Montelukast Sodium (Montelukast 10 Mg Tablet) 10 mg PO QDAY [facility] Last Admin: 12/17/22 08:25 Dose: 10 mg Morphine Sulfate (Morphine 4 Mg/Ml Vial) 0 mg IV Q3HP PRN PRN Reason: Pain Omeprazole (Omeprazole 20 Mg Capsule) 20 mg PO QDAY [facility] Last Admin: 12/17/22 08:25 Dose: 20 mg Ondansetron HCl (Ondansetron 4 Mg/2 Ml Vial) 4 mg IV Q4HP PRN PRN Reason: Nausea And Vomiting Polyethylene Glycol (Polyethylene Glycol 3350 17 Gm Packet) 17 gm PO DAILYP PRN PRN Reason: Constipation Potassium Chloride (Potassium Chloride 20 Meq Tablet) 40 meq PO UD PRN PRN Reason: Potssium is 3-3.5 Potassium Chloride (Potassium Chloride 20 Meq Tablet) 40 meq PO UD PRN PRN Reason: Potassium < 3 Senna (Sennosides 1 Tablet) 2 tab PO DAILYP PRN PRN Reason: Constipation Sodium Chloride (0.9 % Sodium Chloride 10 Ml Syringe) 10 ml IV Q8 [facility] Last Admin: 12/18/22 05:37 Dose: 10 ml A/P Narrative A/P Narrative: A: *Left side pelvic fracture, nondisplaced. With hematoma: Per trauma surgery > conservative treatment -Nonweightbearing for 6 weeks then partial and gradual thereafter *HLD: *Depression: *GERD: P: -pain control, muscle relaxers -per orthopedics > conservative treatment, NWB x6wks then partial and gradual thereafter -per ortho > repeat imaging in 2wks. -cont home medications -PT/OT -follow-up with orthopedic surgery -CM for placement -ppx: SCD(given trauma/hematoma) / home ppi Time Spent With Patient Time: Total time spent is greater than 50% in coordination of care (as documented) at patient's floor/unit and/or counseling patient: QUALITY VTE Deep Vein Thrombosis/Pulmonary Embolism Present on Admission: No
[2022-12-18] MEDS: DOCUSATE SODIUM 100 MG CAPSULE PO SCH (09:16)
[2022-12-18] MEDS: OMEPRAZOLE 20 MG CAPSULE PO SCH (09:16)
[2022-12-18] MEDS: MONTELUKAST 10 MG TABLET PO SCH (09:16)
== END 2022-12-18 14:28 | DRG 536 ==
LOC: ED 16:32 → MEDSUR 20:51
PROVIDERS: ADMIT Internal Medicine; ATTEND Internal Medicine